=== PATIENT | male | born 1960 | race Two or more races ===

== ENCOUNTER 2024-03-17 02:04 | Emergency (ER) | payer OTHER, SELFPAY ==
--- NOTE | 2024-03-17 02:25 | ED.CPR ---
HPI - CPR General Stated Complaint: cardiac arrest, anthony, James epi Time Seen by Provider: 03/17/24 02:21 Source: family (Son) and EMS Mode of arrival: EMS History of Present Illness ED Provider: DR. Sher HPI narrative: 63-year-old male came in by ambulance for cardiac arrest. Patient with history of asthma and recent hospitalization at [facility] for pneumonia discharged on 03/11/2024 patient reportedly did well after discharge until today when he started to complain of shortness of breath and difficulty breathing patient was placed by [facility] to transport to the hospital patient unfortunately arrested CPR was started by EMS and patient was intubated at the scene was given 5 rounds of 1 mg of epinephrine then transported to the hospital on arrival to the hospital patient is still unresponsive, in asystole, with no pulse, intubation was checked and confirmed. Patient received epinephrine 1 mg x 3, 1 amp of bicarb, 1 amp of D50, cardiac activity with checked by ultrasound was no cardiac activity, patient remained asystole and patient was announce that at 02:15. Review of Systems Review of Systems: All other systems are reviewed and are negative Constitutional: Reports as per HPI and Reports no additional constitutional complaints Eyes: Reports as per HPI and Reports no additional eye complaints Reports system reviewed and no additional complaints, except as documented Cardiovascular: Reports as per HPI and Reports no additional cardiovascular complaints Respiratory: Reports as per HPI and Reports no additional respiratory complaints Gastrointestinal: Reports as per HPI and Reports no additional gastrointestinal complaints Genitourinary: Reports no additional female genitourinary complaints Musculoskeletal: Reports no additional musculoskeletal complaints Skin/Breast: Reports system reviewed and no additional complaints, except as docu Psychiatric: Reports no additional psychiatric complaints Endocrine: Reports no additional endocrine complaints Hematologic/Lymphatic: Reports no additional hematologic/lymphatic complaints Allergic/Immunologic: Reports no additional allergic/immunologic complaints Reports system reviewed and no additional complaints, except as documented and Reports Abnormal speech present Physical Exam Vital Signs: Vital Signs: Asystole, no spontaneous breathing. General: unresponsive, pale. HEENT: No signs of trauma, pupil 4 mm nonreactive bilaterally, no bleeding. HEART: No cardiac sounds. Lungs: Intubated no spontaneous breathing. Abdomen slightly distended no sign of trauma. Back: No trauma. Neuro: Nonresponsive. Extremity s/p L BKA. Course Reevaluation(s) Reevaluation #1: Cardiac arrest, case was declined by me case [id number] and was declined by Cale Winchester. Family was notified. Time: 02:34 Medical Decision Making Differential Diagnosis Differential Diagnoses: The differential diagnosis associated with the presentation includes (Cardiopulmonary arrest.) Discharge Plan Discharge Clinical Impression: Cardiac arrest Patient Disposition:
--- NOTE | 2024-03-17 03:59 | PC.NURSE ---
unknown home at this time per family
[2024-03-18 14:49] LABS: Glucose, Whole Blood 171 mg/dL (60-115)
== END 2024-03-17 06:03 | disposition expired ==
LOC: HO.ED 06:02
PROVIDERS: Emergency Provider Emergency Medicine; PCP Internal Medicine
DX: I46.9 Cardiac arrest, cause unspecified (principal)
CPT/HCPCS: 82947; 96374; 96375; 99282; 99285; J0171